=== PATIENT | female | born 1960 | race Native Hawaiian/Other Pacific Islander ===

== ENCOUNTER 2021-01-30 10:54 | Outpatient (CLI) | payer OTHER | END 2021-01-30 22:14 | disposition home or self-care (01) | LOC: MRI 10:54 | PROVIDERS: ATTEND Orthopaedic Surgery Hand Surgery | DX: M75.02 Adhesive capsulitis of left shoulder (principal) ==

== ENCOUNTER 2022-01-14 11:13 | Outpatient (CLI) | payer OTHER | END 2022-01-14 18:53 | disposition home or self-care (01) | LOC: RAD 11:13 | PROVIDERS: ATTEND Nurse Practitioner Family | DX: R06.00 Dyspnea, unspecified (principal) ==

== ENCOUNTER 2022-01-18 12:23 | Outpatient (CLI) | payer OTHER | END 2022-01-18 18:58 | disposition home or self-care (01) | LOC: RAD 12:23 | PROVIDERS: ATTEND Nurse Practitioner Family | DX: R07.81 Pleurodynia (principal); M62.830 Muscle spasm of back ==